=== PATIENT | female | born 2000 | race Caucasian/White ===

== ENCOUNTER 2023-03-28 19:54 | Emergency (ER) | payer OTHER ==
[~2023-03-28] VITALS: Ht 180.3 cm; Wt 142.9 kg
[2023-03-28] MEDS ORDERED: CEPH500C2 PO (21:57)
[2023-03-28] MEDS ORDERED: SULF1TAB48 PO (21:57)
[2023-03-28 22:02] VITALS: BP 138/93; O2SAT 100
== END 2023-03-28 22:05 | disposition home or self-care (01) ==
LOC: ER 19:54
DX: L03.031 Cellulitis of right toe (principal); G43.909 Migraine, unspecified, not intractable, without status migrainosus; Z79.899 Other long term (current) drug therapy
CPT/HCPCS: 73630; A4663

== ENCOUNTER 2024-08-24 15:35 | Emergency (ER) | payer OTHER ==
[~2024-08-24] VITALS: Ht 180.3 cm; Wt 136.1 kg
[~2024-08-24 15:35] MED LIST: CEPH500C2 PO; SULF1TAB48 PO
[2024-08-24 17:48] LABS: BASOPHILS # (AUTO) 0.1 K/UL (0.0-0.2); EOSINOPHILS # (AUTO) 0.1 K/uL (0.0-0.7); EOSINOPHILS % (AUTO) 1.3 % (0.0-7.0); HEMATOCRIT 31.9 % (31.2-41.9); HEMOGLOBIN 10.7 g/dL (10.9-14.3); LYMPHOCYTES # (AUTO) 2.2 K/uL (0.8-4.8); LYMPHOCYTES % (AUTO) 30.8 % (20.5-51.5); MEAN CORPUSCULAR HGB CONC 33 g/dL (32.3-35.6); MONOCYTES # (AUTO) 0.6 K/uL (0.1-1.30); MONOCYTES % (AUTO) 8.3 % (0.0-11.0); NEUTROPHILS # (AUTO) 4.2 K/uL (1.8-8.9); NEUTROPHILS % (AUTO) 58.6 % (38.5-71.5); PLATELET COUNT (AUTO) 147 K/uL (179-408); RED BLOOD CELL COUNT(AUTO) 4.26 MIL/uL (3.63-4.92); RED CELL DISTRIBUTION WIDTH 16.3 % (12.3-17.7); WHITE BLOOD COUNT (AUTO) 7.1 K/uL (3.8-11.8)
[2024-08-24 17:51] LABS: DIFFERENTIAL COMMENT 1
[2024-08-24 17:57] LABS: CALCIUM 8.7 mg/dL (8.5-10.1); CARBON DIOXIDE 27 mmol/L (21-32); CHLORIDE 107 mmol/L (98-107); CREATININE 0.9 mg/dL (0.6-1.3); GLUCOSE 91 mg/dL (74-106); POTASSIUM 4.6 mmol/L (3.5-5.1); SODIUM SERUM 144 mmol/L (136-145); UREA NITROGEN, BLOOD 14 mg/dL (7-18)
[2024-08-24 18:11] LABS: ALANINE AMINOTRANSFERASE 19 U/L (14-59); ALBUMIN 3.6 g/dL (3.4-5.0); ALKALINE PHOSPHATASE 95 U/L (50-136); ASPARTATE AMINOTRANSFERASE 21 U/L (15-37); BILIRUBIN,DIRECT 0.2 mg/dL (0.0-0.2); BILIRUBIN,TOTAL 0.9 mg/dL (0.2-1.0); NT-PRO BNP 255 pg/mL (0-125); TOTAL PROTEIN, SERUM 7.3 g/dL (6.4-8.2)
[2024-08-24] MEDS ORDERED: ALBUTEROL SULFATE 2.5 MG/3 ML NEBU ONE (18:52)
[2024-08-24] MEDS ORDERED: IPRATROPIUM BROMIDE 0.5 MG/2.5 ML NEBU ONE (18:52)
[2024-08-24 18:55] VITALS: O2SAT 98
[2024-08-24] MEDS ORDERED: IOHEXOL 350 100 ML INFUS..BTL ONE (19:06)
[2024-08-24] MEDS ORDERED: IV NORMAL SALINE 250 ML IV ONE (19:07)
[2024-08-24] MEDS ORDERED: SWABABLE VALVE TRANSFER SET EA MC ONE (19:07)
[2024-08-24] MEDS: IPRATROPIUM BROMIDE 0.5 MG/2.5 ML NEBU NEB ONE (19:40)
[2024-08-24] MEDS: ALBUTEROL SULFATE 2.5 MG/3 ML NEBU NEB ONE (19:41)
[2024-08-24 20:00] VITALS: O2SAT 99
[2024-08-24] MEDS ORDERED: ASPIRIN 81 MG TAB.CHEW ONE (22:54)
[2024-08-24] MEDS: ASPIRIN 81 MG TAB.CHEW PO ONE (22:55)
[2024-08-25] MEDS ORDERED: FLUT1BLS15 INH (00:55)
[2024-08-25] MEDS ORDERED: ALBU8.5H8 INH (00:55)
[2024-08-25] MEDS ORDERED: DOXY100T2 PO (00:55)
[2024-08-25] MEDS ORDERED: DOXYCYCLINE HYCLATE 100 MG TABLET ONE (00:58)
[2024-08-25] MEDS: DOXYCYCLINE HYCLATE 100 MG TABLET PO ONE (01:03)
[2024-08-25 01:05] VITALS: BP 125/84; TEMP 98; O2SAT 99
== END 2024-08-25 01:06 | disposition home or self-care (01) ==
LOC: ER 15:35
DX: J45.909 Unspecified asthma, uncomplicated (principal); R10.2 Pelvic and perineal pain; Z79.01 Long term (current) use of anticoagulants; Z79.51 Long term (current) use of inhaled steroids; Z20.822 Contact with and (suspected) exposure to COVID-19; Z86.73 Personal history of transient ischemic attack (TIA), and cerebral infarction without residual deficits; Z88.7 Allergy status to serum and vaccine
CPT/HCPCS: 99291; 71275; 87426; 80076; 80048; 83880; 85025; 85730; 84484 ×4; 84702; 36415; 71045; 94644; 93005; Q9967; A4606; A4663; J3590